=== PATIENT | female | born 1960 | race Caucasian/White ===

== ENCOUNTER → 2016-10-12 16:22 | Outpatient (CLI) | payer BC | END | disposition home or self-care (01) | LOC: D.MAMMO 13:15 | DX: Z12.31 Encounter for screening mammogram for malignant neoplasm of breast (principal) ==

== ENCOUNTER → 2016-10-19 15:07 | Outpatient (CLI) | payer BC | END | disposition home or self-care (01) | LOC: D.MRI 15:07 | DX: M54.16 Radiculopathy, lumbar region (principal) ==

== ENCOUNTER 2019-01-30 08:00 | Outpatient (CLI) | payer OTHER | END 2019-01-30 09:00 | disposition home or self-care (01) | LOC: D.MAMMO 08:00 | PROVIDERS: ATTEND Family Medicine | DX: Z12.31 Encounter for screening mammogram for malignant neoplasm of breast (principal) ==

== ENCOUNTER 2019-10-26 10:52 | Outpatient (CLI) | payer OTHER ==
[~2019-10-26] VITALS: Ht 167.6 cm; Wt 119.3 kg
--- NOTE | ~2019-10-26 | HEMODYNAMI ---
PATIENT:ARNOLDO BRUMFIELD MEDICAL RECORD: [id number] : 60 LOCATION:[facility] ADMISSION DATE: 10/26/19 Generatedon:10/26/201913:28 Patient name: ARNOLDO BRUMFIELD Patient #: [id number] SSN: [id number] : 1960 Date of study: 10/26/2019 Page: Of Hemodynamic Procedure Report Patient Data Patient Demographics Procedure consent was obtained First Name: ARNOLDO Gender: Female Last Name: OCTAVIANO : 1960 Middle Initial: MICHELLE Age: 59 year(s) Patient #: [id number] Race: Unknown SSN: [id number] Additional ID: [id number] Contact details [address]: [address] [place] [address] State: [place] City: [place] Zip code: [address] Past Medical History Allergies Allergen Reaction Date Comments Reported Penicillins 10/26/2019 Admission Admission Data Admission Date: 10/26/2019 Admission Time: 10:52 Arrival Date: 10/26/2019 Arrival Time: 13:00 Admit Source: Other Insurance Payor: Private health insurance [facility] #: [id number] Height (in.): 66 BSA: 2.26 (m2) Height (cm.): 167.64 BMI: 42.93 (kg/m2) Weight (lbs.): 266 Weight (kg.): 120.66 Lab Results Lab Result Date: 10/26/2019 Lab Result Time: 0:00 Biochemistry Name Units Result Min Max BUN mg/dl 19 --(----)*- 7 18 Creatinine mg/dl 0.9 --(-*--)-- 0.6 1.3 eGFR ml/min 67.34180 *-(----)-- 90 120 NONAFRICAN CBC Name Units Result Min Max Hematocrit % 36.7 *-(----)-- 42 54 Hemoglobin g/dl 11.7 *-(----)-- 13.5 17.5 Procedure Procedure Types Cath Procedure Diagnostic Procedure [facility] w/Coron[facility] Procedure Description Procedure Date Procedure Date: 10/26/2019 Procedure Start Time: 13:03 Procedure End Time: 13:27 Procedure Staff Name Function Joon Allen MD Performing Physician Jany Verde RT Monitor Romy Lynn RT Scrub Izabela Lazaro RN Nurse Procedure Data Cath Procedure Fluoroscopy Diagnostic fluoroscopy Total fluoroscopy Time: 3.2 time: 3.2 min min Diagnostic fluoroscopy Total fluoroscopy dose: 482 dose: 482 mGy mGy Contrast Material Contrast Material Type Amount (ml) Isovue 300 58 Entry Location Entry Primary Successful Side Size Upsize Upsize Entry Closure Nicole ccessful Closure Location (Fr) 1 (Fr) 2 (Fr) Remarks Device Remarks Radial Right 6 Fr Mechanical artery Short Compression Estimated blood loss: 5 ml Diagnostic catheters Device Type Used For End Catheter Placement DIAGNOSTIC [place] 110cm 5 Multi-vessel Fr catheter ([id number]) Angiography Procedure Complications No complications Procedure Medications Medication Administration Route Dosage Oxygen etCO2 Nasal cannula 2 l/min Lidocaine 2% added to field 20 Heparin Flush Bag added to field 2 bags (1000units/500ml NS) 0.9% NaCl I.V. 100 ml/hr Radial Cocktail I.A. 1 syringe (Verapamil 2mg/Nitro 400mcg/Heparin 1500units) Versed I.V. 2 mg Fentanyl I.V. 100 mcg Versed I.V. 2 mg Fentanyl I.V. 50 mcg Hemodynamics Rest BSA: 2.26 (m2) O2 Consumption: Estimated: 222.3 (ml/min) O2 Consumption indexed: Estimated:98.36 (ml/min/m) Heart Rate: 79 (bpm) Pressure Samples Time Site Value (mmHg) Purpose Heart Use Rate(bpm) 13:07 LV 141/12,18 Snapshot 84 Gradients Valve Time Site Site Mean SEP/DFP Peak To Heart Use 1 2 (mmHg) (sec/min) Peak Rate (mmHg) (bpm) Aortic 13:07 LV AO 84 Snapshots Pre Cath Intra NCS Post Cath Vital Signs Time Heart Resp SPO2 etCO2 NIBP (mmHg) Rhythm Pain Sedation Rate (ipm) (%) (mmHg) Status Level (bpm) 12:57:57 79 13 99 35.8 172/92(137) NSR 0 (11) 10(A) , No pain 12:59:42 76 18 98 35.8 167/101(148) NSR 0 (11) 10(A) , No pain 13:04:14 82 16 98 32.8 158/100(133) NSR 0 (11) 10(A) , No pain 13:08:47 80 18 95 36.6 136/85(116) NSR 0 (11) 10(A) , No pain 13:13:15 80 18 95 37.3 145/84(126) NSR 0 (11) 10(A) , No pain 13:17:43 78 22 93 32.8 148/96(123) NSR 0 (11) 10(A) , No pain 13:22:12 77 12 96 41 151/94(131) NSR 0 (11) 10(A) , No pain 13:26:42 76 15 98 30.6 148/99(134) NSR 0 (11) 10(A) , No pain Medications Time Medication Route Dose Verified Delivered Reason Notes Effectiveness by by 12:56:47 Oxygen etCO2 2 l/min Joon Gurrola used for Nasal [facility] Gordy Lazaro RN procedure cannula 12:56:56 Lidocaine 2% added 20ml Joon Dupree for local to vial [facility] anesthetic field MD RAHMAN 12:57:02 Heparin Flush added 2 bags Joon Dupree used for Bag to [facility] procedure (1000units/500ml field MD RAHMAN NS) 12:57:12 0.9% NaCl I.V. 100 Joon Gurrola Per ml/hr [facility] Gordy Lazaro RN physician 13:03:41 Versed I.V. 2 mg Joon Olivoie for sedation [facility] Gordy Lazaro RN, MD 13:03:46 Fentanyl I.V. 100 mcg Joon Olivoie for sedation [facility] Gordy Lazaro RN, MD 13:06:04 Radial Cocktail I.A. 1 Joon Geovaniie for (Verapamil syringe [facility] Gordy Lazaro RN vasodilation 2mg/Nitro 400mcg/Heparin 1500units) 13:06:21 Versed I.V. 2 mg Joon Geovaniie for sedation St Gordy Lazaro RN, MD 13:06:27 Fentanyl I.V. 50 mcg Joon Olivoie for sedation [facility] Gordy Lazaro RN, MD Procedure Log Time Note 12:11:42 Informed consent obtained and on chart 12:13:49 Procedure Status Elective Heart Cath (OP). 12:13:51 Time tracking: Regular hours (M-F 7:00 - 5:00) 12:13:55 Plan of Care:Hemodynamics will remain stable., Cardiac rhythm will remain stable., Comfort level will be maintained., Respiratory function will remain adequate., Patient/ family verbilizes understanding of procedure., Procedure tolerated without complication., Recovers from procedure without complications.. 12:14:05 H&P Date Dictated: 10/02/2019 Within 30 days and on chart., H&P Addendum completed by physician on day of procedure. (MUST COMPLETE FOR ALL OUTPATIENTS). 12:14:22 Patient allergic to Penicillins 12:14:54 Patient Weight : 266 lbs 12:14:57 Patient Height : 66 inches 12:15:02 Arrival Date: 10/26/2019 1:00:00 PM 12:18:16 Lab Result : eGFR NONAFRICAN 67.12936 ml/min 12:18:16 Lab Result : Creatinine 0.9 mg/dl 12:18:16 Lab Result : BUN 19 mg/dl 12:18:16 Lab Result : Hematocrit 36.7 % 12:18:16 Lab Result : Hemoglobin 11.7 g/dl 12:34:28 Romy Lynn RT(R) (CV) sent for patient. Start room use. 12:56:47 Oxygen 2 l/min etCO2 Nasal cannula was administered by Izabela Lazaro RN; used for procedure; Verbal order read back and verified. 12:56:56 Lidocaine 2% 20ml vial added to field was administered by Joon Allen MD; for local anesthetic; Verbal order read back and verified. 12:57:02 Heparin Flush Bag (1000units/500ml NS) 2 bags added to field was administered by Joon Allen MD; used for procedure; Verbal order read back and verified. 12:57:12 0.9% NaCl 100 ml/hr I.V. was administered by Izabela Lazaro RN; Per physician; Verbal order read back and verified. 12:57:44 Insurance Payor : Private health insurance 12:57:45 Admit Source: Other 12:58:11 Patient received from Pre/Post Procedure Room to CCL 1 Alert and oriented. Tansferred to table in Supine position. 12:58:12 Warm blankets applied, and kirill hugger turned on for patient comfort. 12:58:13 Correct patient and procedure confirmed by team. 12:58:13 ECG and BP/O2 sat monitors applied to patient. 12:58:13 Vital chart was started 12:58:14 Baseline sample Acquired. 12:58:18 Rhythm: sinus rhythm 12:58:31 Pre-procedure instructions explained to patient. 12:58:31 Pre-op teaching completed and patient verbalized understanding. 12:58:33 Family in patients room. 12:58:34 Patient NPO since Midnight. 12:59:20 Was the patient premedicated? No 12:59:22 Is patient on blood thinner?No 12:59:24 Patient diabetic? No. 12:59:43 Previous problem with sedation/anesthesia? No ? 12:59:45 Snore? Yes 12:59:47 Sleep apnea? No 12:59:47 Deviated septum? No 12:59:48 Opens mouth fully? Yes 12:59:50 Sticks out tongue? Yes 12:59:53 Airway obstruction? No ? 12:59:57 Dentures? No ? 13:00:00 Pre procedure: right dorsailis pedis pulse 2+ Normal; easily identifiable; not easily obliterated 13:00:02 Pre procedure: left dorsailis pedis pulse 2+ Normal; easily identifiable; not easily obliterated 13:00:09 IV patent on arrival in left forearm with 0.9% NaCl at O. 13:00:11 Lab results completed and on chart. 13:01:56 Risk of Mortality: 0.2 13:02:00 Risk of blood transfusion: 0.2 13:02:12 Risk of AURELIA: 0.7 13:02:20 Right Radial & Right Groin area was prepped with chlora-prep and draped in sterile fashion 13:02:21 Alarms reviewed by R. N. 13:02:22 Sharps counted by scrub and verified by R.N. 13:02:23 Physician arrived 13:02:24 --------ALL STOP TIME OUT------ 13:02:24 Final Timeout: patient, procedure, and site verified with staff and physician. All members of the team are in agreement. 13:02:29 Right Radial & Right Groin site verified by team. 13:02:33 Fire Safety Assessment: A--An alcohol-based skin anteseptic being used preoperatively., C--Open oxygen or nitrous oxide is being used., D--An ESU, laser, or fiber-optic light is being used. 13:02:37 Physical assessment completed. ASA score P 2 - A patient with mild systemic disease as per Joon Allen MD. 13:03:10 Maximum allowable contrast dose (3.7 X eGFR X 0.75)188 ml. 13:03:14 Sedation plan: IV Moderate Sedation Medication:Versed, Fentanyl 13:03:28 Use device set Radial Dx or PCI 13:03:29 ACIST Syringe (05925) opened to sterile field. 13:03:30 Medline Cath Pack ([id number]) opened to sterile field. 13:03:30 Bag Decanter (2002S) opened to sterile field. 13:03:31 ACIST Hand Control (63381) opened to sterile field. 13:03:31 ACIST Manifold (38774) opened to sterile field. 13:03:32 Tegaderm 4 x 4 (1626W) opened to sterile field. 13:03:33 MBrace Wrist Support ([id number]) opened to sterile field. 13:03:35 EMERALD Guide Wire (267-099) opened to sterile field. 13:03:36 SHEATH 6FR RAIN (5681504) opened to sterile field. 13:03:41 Versed 2 mg I.V. was administered by Izabela Lazaro RN; for sedation; Verbal order read back and verified. 13:03:43 Procedure started. 13:03:43 Full Disclosure recording started 13:03:46 Fentanyl 100 mcg I.V. was administered by Izabela Lazaro RN; for sedation; Verbal order read back and verified. 13:03:48 Local anesthetic to right radial artery with Lidocaine 2% by Joon Allen MD.INITIAL ACCESS ONLY 13:03:49 Zero performed for pressure channel P1 13:04:04 A 6 Fr Short sheath was inserted into the Right Radial artery 13:04:59 A DIAGNOSTIC [place] 110cm 5 Fr catheter (091893) was advanced over the wire and used for Multi-vessel Angiography. 13:06:04 Radial Cocktail (Verapamil 2mg/Nitro 400mcg/Heparin 1500units) 1 syringe I.A. was administered by Izabela Lazaro RN; for vasodilation; Verbal order read back and verified. 13:06:21 Versed 2 mg I.V. was administered by Izabela Lazaro RN; for sedation; Verbal order read back and verified. 13:06:27 Fentanyl 50 mcg I.V. was administered by Izabela Lazaro RN; for sedation; Verbal order read back and verified. 13:07:21 LV hemodynamics recorded. 13:09:26 RCA angiography performed. 13:09:43 Catheter exchanged over wire. 13:10:43 GUIDE 5FR EBU 3.5 catheter ([id number]) opened to sterile field. 13:12:15 LCA angiography performed. 13:12:18 Catheter removed. 13:12:26 ACCDominant side:Right 13:12:35 ZEPHYR REGULAR TR BAND (713733) opened to sterile field. 13:12:53 Procedure ended.(Physican Out) 13:13:46 Sheath removed intact; hemostasis achieved with Mechanical Compression to the Right Radial artery. 13:16:30 Fluoroscopy time 03.20 minutes. 13:16:34 Flurop Dose total: 482 13:16:34 Fluoroscopy dose: 482 mGy 13:16:39 Dose Area Product 75526 mGy/cm. 13:16:52 Contrast amount:Isovue 300 58ml. 13:16:55 Maximum allowable dose exceeded? No. 13:16:56 Sharps counted by scrub and verified by R.N. 13:17:32 Post-procedure physical assessment completed. ASA score P 2 - A patient with mild systemic disease as per Joon Allen MD. 13:17:34 Post procedure rhythm: sinus rhythm 13:17:37 Estimated blood loss: 5 ml 13:26:02 [place] band inflated with 10cc of air. 13:26:24 Post procedure instruction explained to patient.Patient verbalizes understanding. 13:26:25 Patient needs reinforcement of post procedure teaching. 13:26:48 Procedure and supply charges have been captured, reviewed, submitted and are correct. 13:26:51 Procedure Complication : No complications 13:26:52 Vital chart was stopped 13:26:54 [facility] Findings: mild to moderate CAD (<70%) 13:26:56 Operative report dictated upon procedure completion. 13:26:56 See physician's report for complete and final results. 13:26:58 Report given to Pre/Post Procedure Room. 13:27:00 Patient transfered to Pre/Post Procedure Room with Bed. 13:27:01 Procedure ended. 13:27:01 Full Disclosure recording stopped 13:27:05 End room use (Document Last) Device Usage Item Name Manufacture Quantity Catalog Hospital Part Current Minima l Lot# / Number Charge Number Stock Stock Serial# Code ACIST Acist 1 15110 012540 [id number] [id number] 20 Syringe Medical (97758) Systems Inc Medline Medline 1 [id number] 986522 08342 352689 5 Cath Pack ([id number]) Bag Microtek 1 2001S 541746 30681 740554 5 Decanter Medical Inc. () ACIST Hand Acist 1 01284 270006 054753 444401 5 Control Medical (50643) Systems Inc ACIST Acist 1 86540 041615 941700 049170 5 Manifold Medical (62698) Systems Inc Tegaderm 4 3M 1 1626W 237377 882358 440402 5 x 4 (1626W) MBrace Advanced 1 140-0250-00 959443 91567 111158 5 Wrist Vascular Support Dynamics ([id number]) EMERALD Cardinal 1 502-455 724006 103793 799286 5 Guide Wire Health (502-455) SHEATH 6FR Cardinal 1 1321935 929104 2095465 424157 5 [facility] (6758371) DIAGNOSTIC Terumo 1 40-5163 426220 808568 753286 5 [place] 110cm 5 Fr catheter (295936) GUIDE 5FR Medtronic 1 [id number] 639267 251217 307277 1 EBU 3.5 catheter ([id number]) ZEPHYR Cardinal 1 090330 256216 9123947 507826 5 REGULAR TR Health BAND (415110) Signature Audit [place] Stage Time Signature Unsigned Intra-Procedure 10/26/2019 Jany Verde 1:27:23 PM RT(R) Intra-Procedure 10/26/2019 Izabela Lazaro RN 1:27:47 PM Intra-Procedure 10/26/2019 Joon Whatley 1:28:09 PM Gordy RAHMAN [id number] [place] [address]
[2019-10-26] MEDS ORDERED: ZYLOPRIM100 MG PO (11:11)
[2019-10-26] MEDS ORDERED: PROPRANOLOL HCL20 MG PO ×2 (11:11→11:15)
[2019-10-26] MEDS ORDERED: HCTZ25 MG PO (11:11)
[2019-10-26] MEDS ORDERED: OMEPRAZOLE20 M1 PO (11:12)
[2019-10-26] MEDS ORDERED: HYDROCODON-ACE1 EA10 PO (11:13)
[2019-10-26] MEDS ORDERED: AMBIEN10 MG PO (11:13)
[2019-10-26] MEDS ORDERED: CLARITIN 10 MG10 MG PO (11:14)
[2019-10-26] MEDS ORDERED: CYCLOBENZAPRINE10 MG PO (11:15)
[2019-10-26] MEDS ORDERED: ENTRESTO 24 MG1 EACH PO (11:15)
[2019-10-26 11:32] VITALS: BP 176/103; Ht 167.6 cm; Wt 119.3 kg
[2019-10-26 11:33] LABS: BASOPHILS 0.2 % (0-2); HEMATOCRIT 36.7 % (36.0-48.0); HEMOGLOBIN 11.7 g/dL (12-16); IMMATURE GRANULOCYTES 0.1 % (0-5); LYMPHOCYTES 18.6 % (15-50); MCH 27.3 pg (26.0-34.0); MCHC 31.9 g/dL (31.0-37.0); MCV 85.5 fL (80.0-100.0); MEAN PLATELET VOLUME 9.7 fL (7.4-10.4); MONOCYTES 11.5 % (2-11); NEUTROPHILS 65.6 % (40-80); PLATELET COUNT 246 10x3/uL (130-400); RBC 4.29 10x6/uL (4.00-5.40); RDW 14.8 % (11.5-14.5); WBC 8.3 10x3/uL (4.8-10.8)
[2019-10-26 12:08] LABS: ANION GAP 11.6 mmol/L (8-16); CALCIUM 9.2 mg/dL (8.5-10.1); CARBON DIOXIDE 29.2 mmol/L (21.0-32.0); CHOL - HDL RATIO 3.2 ratio (2.3-4.1); CREATININE - SERUM 0.9 mg/dL (0.6-1.3); LDL-HDL RATIO 1.8 ratio (1.5-3.5); POTASSIUM - SERUM 3.8 mmol/L (3.5-5.1)
--- NOTE | 2019-10-26 13:35 | NUR ---
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 FAMILY AT AND DR. VILLALBA HAS BEEN IN TO UPDATE THEM. ALARMS ON AND C/L IN REACH.
--- NOTE | 2019-10-26 13:52 | NUR ---
HOB UP. R WRIST SITE C/D/I. FAMILY AT BS.
--- NOTE | 2019-10-26 14:00 | NUR ---
R WRIST SITE C/D/I, NO S/S OF BLEEDING OR HEMATOMA. AT BS. VSS.
--- NOTE | 2019-10-26 14:30 | NUR ---
PT UP TO BR TO VOID INDEPENDENTLY. WILL BEGIN REMOVING AIR FROM Z BAND PER MD ORDERS.
--- NOTE | 2019-10-26 14:51 | NUR ---
5CC AIR REMOVED FROM Z BAND. NO S/S OF BLEEDING OR HEMATOMA. VSS. PT WATCHING TV.
--- NOTE | 2019-10-26 15:05 | NUR ---
ADDITIONAL 2ML AIR RELEASED FROM Z BAND. NO S/S OF BLEEDING OR HEMATOMA.
--- NOTE | 2019-10-26 15:15 | NUR ---
AIR REMOVED FROM Z BAND, NO S/S OF BLEEDING OR HEMATOMA. PIV D/C'D WITH CATH INTACT, DSG APPLIED, PT ALLOWED UP TO GET DRESSED.
--- NOTE | 2019-10-26 15:30 | NUR ---
ALL DISCHARGE INSTRUCTIONS AND FOLLOW UP APPT REVIEWED. PT VERBALIZES UNDERSTANDING - AT BS. R WRIST SITE C/D/I. PT D/C'D VIA WC WITH BELONGINGS AND PAPERWORK.
--- NOTE | 2019-11-06 13:00 | OP ---
PATIENT NAME: ARNOLDO BRUMFIELD MEDICAL RECORD: [id number] :60 LOCATION:D.CAT ADMISSION DATE: SURGEON: ALESHA THAKUR MD DATE OF OPERATION: 10/26/2019 PROCEDURE: Left heart catheterization, selective coronary angiography, right radial approach. CATHETERS: Radial sheath, [place] catheter. The procedure was well tolerated. The patient returned to gardner. Sheath removed. TR band was placed. FINDINGS: Left ventriculography in 30-degree CHAN view: Normal wall motion, normal systolic function. CORONARY ANATOMY: LEFT MAIN: Left main is free of disease. LAD: Free of disease in the diagonal system. CIRCUMFLEX: Free of disease in the marginal system. RIGHT CORONARY ARTERY: Dominant artery giving rise to PDA, free of disease. IMPRESSION: Improved LV systolic function from echo with improved nonischemic cardiomyopathy. No evidence of coronary artery disease. TRANSINT:[id number] Voice Confirmation ID: [id number] DOCUMENT ID: [id number] ALESHA THAKUR MD at 1300 CC: [id number] DICTATION DATE: 10/26/19 1324 MONKEY BREEDER: 10/26/19 1821 DEP CLI 10/26/19 [facility] [address] [place] [address]
== END 2019-10-26 15:30 | disposition home or self-care (01) ==
LOC: D.CATH 10:52
PROVIDERS: ATTEND Internal Medicine Interventional Cardiology
DX: I42.9 Cardiomyopathy, unspecified (principal); I10 Essential (primary) hypertension; E78.5 Hyperlipidemia, unspecified; R94.31 Abnormal electrocardiogram [ECG] [EKG]

== ENCOUNTER → 2020-06-17 15:45 | Outpatient (CLI) | payer OTHER ==
[2019-10-26 11:32] VITALS: BMI 42.4
[~2020-06-17 15:45] MED LIST: AMBIEN10 MG PO; CLARITIN 10 MG10 MG PO; CYCLOBENZAPRINE10 MG PO; ENTRESTO 24 MG1 EACH PO; HCTZ25 MG PO; HYDROCODON-ACE1 EA10 PO; OMEPRAZOLE20 M1 PO; PROPRANOLOL HCL20 MG PO; ZYLOPRIM100 MG PO
== END | disposition home or self-care (01) ==
LOC: D.MAMMO 15:45
PROVIDERS: ATTEND Family Medicine
DX: Z12.31 Encounter for screening mammogram for malignant neoplasm of breast (principal)